=== PATIENT | female | born 1975 | race Caucasian/White ===

== ENCOUNTER → 2021-01-19 16:07 | Outpatient (CLI) | payer OTHER, MEDICAID, SELFPAY ==
[2021-01-19 18:47] LABS: HIV 1 & 2 Ab/Ag 4th Gen Combo NEGATIVE (NEGATIVE)
== END ==
PROVIDERS: PCP Physician Assistant; Referring Provider Physician Assistant; Visit Provider Physician Assistant
DX: Z11.3 Encounter for screening for infections with a predominantly sexual mode of transmission (principal)
CPT/HCPCS: 36415; 87389